=== PATIENT | female | born 1960 | race African-American/Black ===

== ENCOUNTER → 2018-11-30 | Emergency (ER) | payer OTHER ==
[~2018-11-30] VITALS: Ht 152.4 cm; Wt 53.1 kg
== END | disposition home or self-care (01) ==
LOC: ER 03:28
DX: K52.89 Other specified noninfective gastroenteritis and colitis (principal)

== ENCOUNTER 2019-03-21 02:13 | Emergency (ER) | payer OTHER ==
[~2019-03-21] VITALS: Ht 152.4 cm; Wt 51.7 kg
[2019-03-21] MEDS ORDERED: KETO10TA2 PO (05:19)
[2019-03-21] MEDS ORDERED: MAPAP500 MG (08:26)
== END 2019-03-21 05:49 ==
LOC: ER 02:13
DX: M94.0 Chondrocostal junction syndrome [Tietze] (principal); R07.89 Other chest pain